=== PATIENT | female | born 1975 | race Caucasian/White ===

== ENCOUNTER 2018-10-15 07:15 | Day surgery (SDC) | payer BC ==
[2018-10-11 12:23] VITALS: BMI 28.4
[~2018-10-15 07:15] MED LIST: DEXAMETHASONE SOD PHOSPHATE 10 MG/ML 1 ML VIAL IV ONE; HYDROmorphone 0.5 MG/0.5 ML SYRINGE IVP PRN; LACTATED RINGERS 1,000 ML IV SCH; LIDOCAINE 1% 20 ML VIAL (10MG/ML) FOR IV START INTRADERMA PRN; MIDAZOLAM 2 MG/2 ML VIAL IV PRN; ONDANSETRON 4 MG/2 ML VIAL IVP ONE; SCOPOLAMINE 1.5MG/72HR PATCH TRANSDERM ONE
[2018-10-15 08:02] VITALS: TEMP 98.5
[2018-10-15] MEDS ORDERED: ceFAZolin IN SWFI 2 GM/20 ML SYRINGE IVP STA (08:39)
--- NOTE | 2018-10-15 08:41 | P.GSHP ---
History of Present Illness H&P Date: 10/15/18 CHIEF COMPLAINT: Back mass HISTORY OF PRESENT ILLNESS: The patient is a 57 year-old female with history of lipomas of the upper back. She presents today for surgical excision. PAST MEDICAL HISTORY: Please see list. PAST SURGICAL HISTORY: Please see list. MEDICATIONS: Please see list. ALLERGIES: Please see list. SOCIAL HISTORY: No illicit drug use FAMILY HISTORY: No reports of Crohn disease or ulcerative colitis. REVIEW OF ORGAN SYSTEMS: CONSTITUTIONAL: No reports of fevers or chills. GI: Denies any blood in stools or constipation. PHYSICAL EXAM: VITAL SIGNS: Stable Patient is a 43-year-old female. Skin: 4 cm deep subcutaneous tumor along the left flank including along the left lower back. No skin changes noted. GENERAL: Well developed and in no acute distress. Pleasant. HEENT: No sclera icterus. Extraocular movements grossly intact. Moist buccal mucosa. Head is atraumatic, normocephalic. Hears conversational speech. No nasal drainage. NECK: Supple without lymphadenopathy. No JV distention. CHEST: Non-labored respirations and equal bilateral excursions. CARDIOVASCULAR: Regular rate and rhythm. Palpable 2+ radial pulses. ABDOMEN: Soft. Non-tender. Nondistended. MUSCULOSKELETAL: No clubbing, cyanosis or edema. NEUROLOGIC: No focal or lateralizing signs. PSYCH: Appropriate affect. Alert and oriented to person, place and time ASSESSMENT: 1. Deep subcutaneous lipoma, left flank and left lower back, over 4 cm. 2. History of tobacco abuse. PLAN: 1. I have asked her for complete tobacco cessation at least for 1-2 weeks, to allow for complete wound healing. 2. She does moderate lifting including twisting and bending, and she is at high risk for wound dehiscence, for which at least one week of recovery was described. 3. Wound care instructions, including type of incisions and risks, were also reviewed. Past Medical History Past Medical History: Hypertension, Thyroid Disorder History of Any Multi-Drug Resistant Organisms: None Reported Past Surgical History: Tubal Ligation Additional Past Surgical History / Comment(s): THYROIDECTOMY Past Anesthesia/Blood Transfusion Reactions: No Reported Reaction Smoking Status: Current every day smoker - Past Family History Father Family Medical History: Cancer Additional Family Medical History / Comment(s): LIVER Medications and Allergies Home Medications Medication Instructions Recorded Confirmed Type Aspirin [Adult Low Dose Aspirin EC] 81 mg PO DAILY 10/11/18 10/11/18 History Levothyroxine Sodium [Synthroid] 125 mcg PO DAILY 10/11/18 10/11/18 History Terbinafine [LamISIL] 250 mg PO DAILY 10/11/18 10/11/18 History amLODIPine BESYLATE/BENAZEPRIL 1 each PO DAILY 10/11/18 10/11/18 History [Lotrel 5-20 MG] Allergies Allergy/AdvReac Type Severity Reaction Status Date / Time No Known Allergies Allergy Verified 10/15/18 07:46 Surgical - Exam Vital Signs Temp Pulse Resp BP Pulse Ox 98.5 F 57 L 16 120/77 99 10/15/18 08:00 10/15/18 08:00 10/15/18 08:00 10/15/18 08:00 10/15/18 08:00
[2018-10-15] MEDS ORDERED: HEPARIN SODIUM,PORCINE 5,000 UNIT/ML 1 ML VIAL SQ ONE (08:53)
[2018-10-15] MEDS ORDERED: HEPARIN SODIUM,PORCINE 5,000 UNIT/ML 1 ML VIAL SQ STA (08:57)
--- NOTE | 2018-10-15 08:59 | P.HPADDEND ---
H&P Addendum H&P Addendum Date: 10/15/18 Patient is most symptomatic from left lower back mass. Will proceed in prone position with general for lower back lipoma. Left flank deferred for another time.
[2018-10-15] MEDS ORDERED: MIDAZOLAM 2 MG/2 ML VIAL ONE (09:03)
[2018-10-15] MEDS ORDERED: ePHEDrine SULFATE/0.9% NACL/PF 50 MG/5 ML SYRINGE IV ONE (09:03)
[2018-10-15] MEDS ORDERED: PROPOFOL 10 MG/ML 20 ML VIAL IV ONE (09:03)
[2018-10-15] MEDS ORDERED: SUCCINYLCHOLINE CHLORIDE 100 MG/5 ML SYR IV ONE (09:03)
[2018-10-15] MEDS ORDERED: LIDOCAINE 1% INJ 10MG/ML (20 ML MDV) ONE (09:03)
[2018-10-15] MEDS ORDERED: fentaNYL (PF) 50 MCG/ML 2 ML AMP ONE (09:03)
[2018-10-15] MEDS ORDERED: GLYCOPYRROLATE 0.2 MG/ML 2 ML VIAL ONE (09:03)
[2018-10-15] MEDS ORDERED: BUPIVACAIN-EPI 0.5%-1:200,000 30 ML VIAL SQ ONE (09:31)
--- NOTE | 2018-10-15 11:14 | P.OP ---
Date of Procedure: 10/15/18 Description of Procedure: Date of Procedure: 10/15/18 SURGEON: PHOENIX FLORES MD [employer]HABILITATION SPECIALIST: None. PREOPERATIVE DIAGNOSES: 1. Left lower back tumor POSTOPERATIVE DIAGNOSES: 1. Deep intramuscular, subfascial, left lower back mass, 23 x 10 cm 2. Chronic tobacco abuse 3. Hypothyroidism 4. Hypertensive heart disease PROCEDURES PERFORMED: 1. Excision of complex left lower back subfascial mass 23 x 10 cm 2. Complex closure left lower back incision, 9-cm Anesthesia: GETA, local Estimated Blood Loss (ml): 20 Pathology: other (Left lower back mass) Condition: stable Disposition: same day COMPLICATIONS: None. Operative Findings: 1. Excision of deep complex interdigitating 23 x 10 cm subfascial lipoma extending intramuscular back removed in piecemeal INDICATIONS: The patient is a 43-year-old female who presents with symptomatic left lower back tumor. Benefits and risks of surgical intervention were described including bleeding, infection. Informed consent was obtained. DESCRIPTION OR PROCEDURE: In the preoperative area, the area of concern was marked with indelible marker. Patient was brought into the operating room. After general induction, she was positioned in prone position. The back was prepped and draped in a standard sterile fashion with ChloraPrep. Timeout protocol was confirmed with the surgical team regarding the patient's name, procedure to be performed including preoperative medications. DVT prophylaxis was confirmed. A field block was placed of the left lower back. An incision using #15 blade was made along the marking into the subcutaneous tissue. Electro-Bovie cautery was used to enter deep into the fascia where a complex interdigitating fatty tumor was removed in piecemeal of 23 x 10 cm. Wide undermining was performed for closing the space. 0 Vicryl for the deep subcutaneous tissue followed by 3- 0 Vicryl was placed in interrupted fashion. 4-0 Monocryl in a running subcuticular fashion was placed along the dermis. The skin was cleansed and Exofin tape with liquid was applied for a four layer closure. The incision was covered with Optifoam dressing. Local anesthetic was placed. At the end of the procedure, needle, sponge, and instrument count was verified correct by hand frame surgical elastic knitter. An abdominal binder was placed. The patient tolerated the procedure well.
--- NOTE | 2018-10-15 11:17 | P.PN ---
Progress Note - Text Progress Note Date: 10/15/18 To Whom It May Concern: Lory Talbert is under my general surgical care. She will be off work from 10/15/18 to 11/03/18 from surgery. She is no lifting over 4 pounds for this time frame. Feel free to contact us if questions. Sincerely Dr. Radha Ortiz
[2018-10-15 11:28] VITALS: RESP 18
[2018-10-15 12:20] VITALS: BP 117/75; PULSE 60
== END 2018-10-15 12:31 | disposition home or self-care (01) ==
LOC: OR 07:15
PROVIDERS: ATTEND Surgery Plastic and Reconstructive Surgery
DX: D17.9 Benign lipomatous neoplasm, unspecified (principal); E03.9 Hypothyroidism, unspecified; I11.9 Hypertensive heart disease without heart failure; F17.200 Nicotine dependence, unspecified, uncomplicated; Z80.8 Family history of malignant neoplasm of other organs or systems; Z79.82 Long term (current) use of aspirin; Z79.890 Hormone replacement therapy; Z79.899 Other long term (current) drug therapy
CPT/HCPCS: 81025; 88304; 21933; 13101; 13102; J2250; J1644; J1100; J2405; J2001; J3010; J0330; J2704; J0690